=== PATIENT | female | born 1940 | race American Indian/Alaskan Native ===

== ENCOUNTER 2020-12-08 14:09 | Inpatient (IN) | payer MEDICARE ==
[~2020-12-08] VITALS: Ht 170.2 cm; Wt 108.7 kg
[~2020-12-08 14:09] MED LIST: METO25ER PO; PRAVASTATIN SOD10 MG PO; UBID100 PO; VALSARTAN-HCTZ1 EAC1 PO
[2020-12-08] MEDS ORDERED: IRBESARTAN-HCT1 EAC3 PO (14:16)
[2020-12-08] MEDS ORDERED: DONEPEZIL HCL5 M2 PO (14:17)
[2020-12-08 17:27] LABS: SARS-Cov-2 (COVID-19) PCR, MMC NEGATIVE (NEGATIVE)
--- NOTE | 2020-12-08 17:35 | NUR ---
Echocardiogram completed.
--- NOTE | 2020-12-08 18:55 | NUR ---
PT TO ICU FROM WEB ANALYST AT 1640, R RADIAL ACCESS WITH TR BANDS X2, HEMATOMA PRESENT ON ARRIVAL, MARKED WITH PEN. R HAND COOL AND DUSKY, 1ML AIR REMOVED FROM DISTAL TR BAND FOR TOTAL OF 9ML NOW IN DISTAL AND 10ML IN PROXIMAL BAND, IMPROVED COLOR, TEMP, AND CAP REFILL. GOOD SPO2 PLETH, 98%. PT ALERT, ORIENTED, FORGETFUL, NOT IMPULSIVE. HR 50'S-60 SBR, BP STABLE, PT DENIES CARDIAC COMPLAINTS. O2 98% ON RA. SKIN INTACT, PT VOIDS, DENIES ABDOMINAL DISCOMFORT. ATE DINNER WITHOUT DIFFICULTY, APPETITE GOOD. NO EDEMA NOTED, PEDAL PULSES WNL. DAUGHTER UPDATED BY PATIENT. PLAN FOR LAD INTERVENTION IN 2 DAYS IF RENAL FUNCTION STABLE PER DR. GRIER.
--- NOTE | 2020-12-08 20:29 | NUR ---
ASSUMED CARE OF PATIENT @1900. PATIENT IS ALERT AND ORIENTED X3. DID NOT KNOW YEAR AND IS FORGETFULL. ABLE TO STATE NAME, , MONTH, AND PRESIDENT. 02 SATS >95% ON RA, HOME CPAP IN ROOM. HR SR-SB 50s-60s. PATIENT DENIES CP/PRESSURE. S/P ANGIO WITH RIGHT RADIAL SITE. TR BAND X2 IN PLACE 9CC IN ONE AND 10CC IN THE OTHER. SENSATION WNL, CAP REFILL LESS THAN 3 SECONDS. HEMATOMA PRESENT ON ARRIVAL TO ROOM PER DAYSHIFT, HEMATOMA IS OUTLINED, NO CHANGES. STARTED DEFLATING BOTH TR BANDS PER ORDERS. BP STABLE. PT NEEDS CONSTANT REMINDER NOT TO USE RIGHT ARM, ARM SPLINT IN PLACE. 1 PERSON ASSIST TO BEDSIDE COMMODE. CALL LIGHT IN REACH. WILL CONTINUE TO MONITOR.
--- NOTE | 2020-12-08 23:04 | NUR ---
TR BANDS DEFLATED @2150, TR BANDS OFF @2300. TEGADERM DRESSING IN PLACE. HEMATOMA UNCHANGED FROM START OF SHIFT. SENSATION INTACT. CAP REFILL <3 SECONDS.
[2020-12-09 03:12] LABS: BASOPHILS ABSOLUTE AUTO 0.02 K/mm3 (0.00-0.23); BASOPHILS PERCENT AUTO 0 % (0-2); EOSINOPHILS ABSOLUTE AUTO 0.15 K/mm3 (0.00-0.68); EOSINOPHILS PERCENT AUTO 2 % (0-6); Hemoglobin 14.7 g/dL (11.5-16.0); IMMATURE GRAN ABSOLUTE AUTO 0.01 K/mm3 (0.00-0.10); IMMATURE GRAN PERCENT AUTO 0 % (0-1); LYMPHOCYTES ABSOLUTE AUTO 2.72 K/mm3 (0.84-5.20); LYMPHOCYTES PERCENT AUTO 33 % (21-46); MONOCYTES ABSOLUTE AUTO 0.72 K/mm3 (0.16-1.47); MONOCYTES PERCENT AUTO 9 % (4-13); Mean Corpuscular HGB 29.5 pg (26.0-34.0); Mean Corpuscular HGB Conc 34.2 g/dL (31.5-36.5); Mean Corpuscular Volume 86 fL (80-100); Mean Platelet Volume 10.8 fL (9.1-12.4); NEUTROPHILS ABSOLUTE AUTO 4.71 K/mm3 (1.96-9.15); NEUTROPHILS PERCENT AUTO 57 % (41-73); Platelet Count 180 K/mm3 (150-400); RDW Coefficient Variation 12.5 % (11.7-14.2); RDW Standard Deviation 39.6 fL (35.1-46.3); Red Blood Cell Count 4.99 M/mm3 (3.80-5.20); White Blood Cell Count 8.33 K/mm3 (4.00-11.30)
[2020-12-09 04:22] LABS: Anion Gap 5 mmol/L (6-16); Blood Urea Nitrogen 13 mg/dL (8-24); Bun/Creatinine Ratio 17.3 (12.0-20.0); CO2, Blood 27 mmol/L (21-32); Chloride, Blood 109 mmol/L (98-108); Creatinine, Blood 0.75 mg/dL (0.40-1.00); Glomerular Filtration Rate >60 (60-); Glucose, Blood 115 mg/dL (70-99); Potassium, Blood 3.8 mmol/L (3.5-5.5); Sodium, Blood 141 mmol/L (136-145)
--- NOTE | 2020-12-09 06:35 | NUR ---
SHIFT SUMMARY PATIENT IS ALERT AND ORIENTED X3, FORGETFULL AND DOES NOT KNOW THE YEAR. 02 SATS >95% ON RA. PATIENT DENIES CP/PRESSURE/SOB. SR @60s. RIGHT RADIAL SITE RECOVERED, TEGADERM IN PLACE AND SPLINT. HEMATOMA UNCHANGED THROUGH THE SHIFT. SENSATION AND CAP REFILL <3 SECONDS. TROPONIN 53.900 TALKED WITH GEOVANNY BOYER, EXPECTED INCREASE S/P ANGIO, RECHECK IN 8 HOURS. 1 PERSON ASSIST TO BEDSIDE COMMODE. BED ALARM ON. WILL CONTINUE TO MONITOR UNTIL REPORT GIVEN TO DAYSHIFT RN.
--- NOTE | 2020-12-09 13:13 | NUR ---
TRANSFER TO PCU REPORT CALLED VIA PHONE. ALL QUESTIONS ANSWERED. ALL PT MEDS AND BELONGINGS TAKEN TO ROOM 230 WITH PT.
--- NOTE | 2020-12-09 17:39 | NUR ---
SHIFT SUMMARY PT TO ROOM AT APPROX 1330, ORIENTED TO ROOM AND CALL LIGHT. PT EDUCATED ON FALL RISK AND TO CALL FOR ASSISTANCE PRIOR TO GETTING UP. PT A&Ox4; CALM AND COOPERATIVE WITH CARE. PT RESTING IN BED DURING SHIFT. UP WITH SBA TO BATHROOM. UP TO CHAIR FOR MEALS. PT DENIES PAIN, CHEST PAIN, SOB, NAUSEA AND DIZZINESS. PT EDCUATED ON PLANS FOR NPO AT MIDNIGHT AND ANGIO TOMORROW. RIGHT RADIAL SITE HAS LARGE, DIFFUSE BRUISING FROM PALM OF RIGHT HAND TO FOREARM, NO TENDERNESS NOTED, SWELLING NOTED TO WRIST, BUT SOFT. VSS. NO OTHER ACUTE CHANGES NOTED. WILL CONTINUE TO MONITOR UNTIL REPORT GIVEN TO ONCOMING RN.
--- NOTE | 2020-12-10 05:48 | NUR ---
SHIFT SUMMARY ASSUMED CARE OF PT AT 1900. PT IS A/OX4. HEART SOUNDS REGULAR, TELE SHOWS SINUS. LUNG SOUNDS ARE DIMINISHED. PT WAS CONTIENT TO BATHROOM. PT WAS A SBA. PT HAS A LARGE BRUISE THAT COVERS HER WHOLE R FORARM FROM ANGIO SITE. SITE HAS SMALL HARD SPOT ON IT BUT OTHERWISE FREE OF PAIN OR BLEEDING. PT HAS BEEN NPO SINCE MIDNIGHT. FLUIDS STARTED EARLY THIS AM. CALL LIGHT IN REACH, BED IN LOWEST POSTION.
[2020-12-10 06:03] LABS: BASOPHILS ABSOLUTE AUTO 0.02 K/mm3 (0.00-0.23); BASOPHILS PERCENT AUTO 0 % (0-2); EOSINOPHILS ABSOLUTE AUTO 0.18 K/mm3 (0.00-0.68); EOSINOPHILS PERCENT AUTO 2 % (0-6); Hematocrit 45.8 % (33.0-51.0); Hemoglobin 15.8 g/dL (11.5-16.0); IMMATURE GRAN ABSOLUTE AUTO 0.02 K/mm3 (0.00-0.10); IMMATURE GRAN PERCENT AUTO 0 % (0-1); LYMPHOCYTES ABSOLUTE AUTO 3.07 K/mm3 (0.84-5.20); LYMPHOCYTES PERCENT AUTO 39 % (21-46); MONOCYTES ABSOLUTE AUTO 0.71 K/mm3 (0.16-1.47); MONOCYTES PERCENT AUTO 9 % (4-13); Mean Corpuscular HGB 29.9 pg (26.0-34.0); Mean Corpuscular HGB Conc 34.5 g/dL (31.5-36.5); Mean Corpuscular Volume 87 fL (80-100); Mean Platelet Volume 10.8 fL (9.1-12.4); NEUTROPHILS PERCENT AUTO 49 % (41-73); Platelet Count 164 K/mm3 (150-400); RDW Coefficient Variation 12.6 % (11.7-14.2); RDW Standard Deviation 39.8 fL (35.1-46.3); Red Blood Cell Count 5.28 M/mm3 (3.80-5.20)
[2020-12-10 06:27] LABS: Anion Gap 7 mmol/L (6-16); Blood Urea Nitrogen 12 mg/dL (8-24); Bun/Creatinine Ratio 16.2 (12.0-20.0); CO2, Blood 27 mmol/L (21-32); Calcium, Blood 8.8 mg/dL (8.5-10.1); Chloride, Blood 105 mmol/L (98-108); Creatinine, Blood 0.74 mg/dL (0.40-1.00); Glomerular Filtration Rate >60 (60-); Glucose, Blood 105 mg/dL (70-99); Potassium, Blood 3.5 mmol/L (3.5-5.5); Sodium, Blood 139 mmol/L (136-145)
--- NOTE | 2020-12-10 08:30 | NUR ---
0830 OUT TO ANGIO
--- NOTE | 2020-12-10 12:51 | NUR ---
1200 Pt stated she needed to pee; rolled onto bedpan, but after 20 minutes she was unable to void. Bladder scan showed 218 cc in bladder. 1230 Pt put in reverse trendelenburg position to eat lunch. After a few bites she suddenly felt like she was going to vomit. Vomited once, the food which she had just eaten. Denies ShOB, denies chest pain, no diaphoresis noted, and vital signs stable. Immediately afterwards, she said her nausea was gone. Medicated with zofran. right groin site remains with FEMstop on, at 59 mmHg. Blood resspure 139/75, spo2 92% on 2nd toe of right foot., distal to right femoral access site. Distal pulses palapable, and toes are pink, cap refill brisk.
--- NOTE | 2020-12-10 13:07 | NUR ---
1055 RETURNED FROM PSYCHOLOGIST ENGINEERING. GROIN SITE CDI WITH FEMCATH. PRESENTLY AT 116 PRESSURE. PT ALERT, ORIENTED X3 TALKING. DENIES PAIN. ON R.A. VSS. NO BLEEDING NOTED, PEDAL PULSES NOTED. CAP REFILL <3 SEC, PT LYING FLAT AND INSTRUCTED TO REMAIN SO. 1115 PT CONTINUES TO BE LYING FLAT. NO BLEEDING NOTED AT FEMORAL SITE. PEDAL PULSES NOTED. A/O X3 DENIES PAIN. VSS STABLE. 1145 PT CONTINUES TO BE LYING FLAT. NO BLEEDING NOTED AT FEMORAL SITE. PEDAL PULSES NOTED. A/O X3 DENIES PAIN. VSS STABLE. 1205 PT CONTINUES TO BE LYING FLAT. NO BLEEDING NOTED AT FEMORAL SITE. PEDAL PULSES NOTED, A/O X3 DENIES PAIN. VSS STABLE.
--- NOTE | 2020-12-10 13:26 | NUR ---
1055 FEMCATH PRESSURE, 116. 1130 FEMCATH PRESSURE, 73 1200 FEMCATH PRESSURE, 58 1300 FEMCATH PRESSURE, 40
--- NOTE | 2020-12-10 13:58 | NUR ---
VSS STABLE. PEDAL PULSES OBTAINED. CAP REFILL <3, NO BLEEDING NOTED. REPORTS SENSATION IN FEET. DENIES PAIN IN ABD. FEELS NEEDS TO URINATE. WILL PLACE ON BEDPAN WHEN AIDE AVAIL. TO ASST. BED CONTINUES TO BE FLAT. PT STATES FEMCATH IS PAINFUL. NOW AT 40 PRESSURE.
--- NOTE | 2020-12-10 18:36 | NUR ---
PT QUITE PLEASANT TODAY. CAME BACK FROM PROCEDURE ABOUT [address] UNTIL ABOUT 4PM. LIGHT BLEEDING NOTED AT SITE. NO HEMATOMA NOTED. NO BRUISING NOTED. PT EATING DINNER THIS LETICIA. IS FORGETFUL, DEMENTIA. HOWEVER REMAINS QUITE PLEASANT. SHE SITTING UP MORE . BED IN LOW POSITION, CALL LITE IN REACH, BED ALARM ON FOR SAFETY
--- NOTE | 2020-12-11 05:35 | NUR ---
SHIFT SUMMARY ASSUMED CARE OF PT AT 1900. PT IS A/OX4. HEART SOUNDS REGULAR, LUNG SOUNDS DIMINISHED. PT WAS A 1P ASSIT TO BATHRROM. PT WAS CONTIENT T/O THE NIGHT. PT R FOREARM HAS A BRUISE FROM WRIST TO ELBOW. SITE IS SOFT AND NONTENDER. PT R FEMORAL SITE IS SLIGHTLY HARD AT SITE WITH A SMALL AMOUNT OF BLOOD BUT OTHERWISE WITH MINIMAL SWELLING. CALL LIGHT IN REACH, BED IN LOWEST POSTION.
[2020-12-11 06:44] LABS: BASOPHILS ABSOLUTE AUTO 0.01 K/mm3 (0.00-0.23); BASOPHILS PERCENT AUTO 0 % (0-2); EOSINOPHILS ABSOLUTE AUTO 0.11 K/mm3 (0.00-0.68); EOSINOPHILS PERCENT AUTO 1 % (0-6); Hematocrit 42.3 % (33.0-51.0); Hemoglobin 14.4 g/dL (11.5-16.0); IMMATURE GRAN ABSOLUTE AUTO 0.02 K/mm3 (0.00-0.10); IMMATURE GRAN PERCENT AUTO 0 % (0-1); LYMPHOCYTES ABSOLUTE AUTO 2.64 K/mm3 (0.84-5.20); LYMPHOCYTES PERCENT AUTO 32 % (21-46); MONOCYTES ABSOLUTE AUTO 0.81 K/mm3 (0.16-1.47); MONOCYTES PERCENT AUTO 10 % (4-13); Mean Corpuscular HGB 29.6 pg (26.0-34.0); Mean Corpuscular Volume 87 fL (80-100); NEUTROPHILS ABSOLUTE AUTO 4.64 K/mm3 (1.96-9.15); NEUTROPHILS PERCENT AUTO 57 % (41-73); Platelet Count 171 K/mm3 (150-400); RDW Coefficient Variation 12.6 % (11.7-14.2); RDW Standard Deviation 39.8 fL (35.1-46.3); Red Blood Cell Count 4.87 M/mm3 (3.80-5.20); White Blood Cell Count 8.23 K/mm3 (4.00-11.30)
[2020-12-11 07:12] LABS: Anion Gap 6 mmol/L (6-16); Blood Urea Nitrogen 13 mg/dL (8-24); Bun/Creatinine Ratio 16.6 (12.0-20.0); CO2, Blood 27 mmol/L (21-32); Calcium, Blood 8.4 mg/dL (8.5-10.1); Chloride, Blood 106 mmol/L (98-108); Creatinine, Blood 0.78 mg/dL (0.40-1.00); Glomerular Filtration Rate >60 (60-); Glucose, Blood 107 mg/dL (70-99); Potassium, Blood 3.7 mmol/L (3.5-5.5); Sodium, Blood 139 mmol/L (136-145)
[2020-12-11] MEDS ORDERED: PRAV20 PO (11:09)
[2020-12-11] MEDS ORDERED: ASPIR 8181 M1 PO (11:10)
[2020-12-11] MEDS ORDERED: CLOP75 PO (11:11)
--- NOTE | 2020-12-11 13:42 | NUR ---
PT WAS DISCHARGED TODAY AT ~1 PM. PT SAID SHE CALLED DAUGHTER TO PICK HER UP AND PT DID NOT CALL DAUGHTER. PT MED LIST/INSTRUCTION WERE REVIEWED TODAY. pT RECIEVED FULL POS T-OP INSTRUCTIONS. PT'S LEFT AC iV WAS REMOVED. POST-OP SITES WERE ASSESSED AND NO OOZING OF BLOOD PRESENT. PT WAS BROUGHT DOWN IN LOBBY BY STAFF.
== END 2020-12-11 12:59 | disposition home or self-care (01) | DRG 247 ==
LOC: ER 14:09 → ICUW 14:30 → ICUE 17:05 → SURS 12-09 13:16
PROVIDERS: ADMIT Internal Medicine Cardiovascular Disease
PROC: 027034Z Dilation of Coronary Artery, One Artery with Drug-eluting Intraluminal Device, Percutaneous Approach (ICD-10-PCS; principal; 2020-12-08)
PROC: B2111ZZ Fluoroscopy of Multiple Coronary Arteries using Low Osmolar Contrast (ICD-10-PCS; 2020-12-08)
PROC: 027034Z Dilation of Coronary Artery, One Artery with Drug-eluting Intraluminal Device, Percutaneous Approach (ICD-10-PCS; 2020-12-09)
DX: I21.29 ST elevation (STEMI) myocardial infarction involving other sites (principal); Z20.822 Contact with and (suspected) exposure to COVID-19; Z79.899 Other long term (current) drug therapy; Z88.8 Allergy status to other drugs, medicaments and biological substances
CPT/HCPCS: 36415; 76937; 80048; 83036; 84484; 85025; 85347; 93306; 93454; 94660; 94762; 99152; 99153; 99285-25; A9270; C1725; C1760; C1769; C1874; C1887; C1894; C9600; J1644; J2250; J2405; J3010; J7030; J7050; Q9967; U0004

== ENCOUNTER → 2021-06-23 | Outpatient (CLI) | payer MEDICARE ==
[~2021-06-23] MED LIST changes: +ASPIR 8181 M1 PO; +CLOP75 PO; +DONEPEZIL HCL5 M2 PO; +IRBESARTAN-HCT1 EAC3 PO; +PRAV20 PO
== END | disposition home or self-care (01) ==
LOC: LAB SHORT 09:44
DX: N39.0 Urinary tract infection, site not specified (principal)
CPT/HCPCS: 87077; 87086; 87147; 87186

== ENCOUNTER → 2021-09-15 | Outpatient (CLI) | payer MEDICARE | END | disposition home or self-care (01) | LOC: LAB 16:00 → LAB SHORT 16:00 | DX: R35.0 Frequency of micturition (principal) | CPT/HCPCS: 87086 ==

== ENCOUNTER → 2021-11-03 | Outpatient (CLI) | payer MEDICARE | END | disposition home or self-care (01) | LOC: LAB 15:54 → LAB SHORT 15:54 | DX: R39.15 Urgency of urination (principal) | CPT/HCPCS: 87086 ==

== ENCOUNTER → 2022-02-03 | Outpatient (CLI) | payer MEDICARE | END | disposition home or self-care (01) | LOC: LAB SHORT 10:30 → LAB 10:30 | DX: R82.90 Unspecified abnormal findings in urine (principal); R46.89 Other symptoms and signs involving appearance and behavior | CPT/HCPCS: 87077; 87086; 87186 ==

== ENCOUNTER → 2022-12-23 | Outpatient (CLI) | payer OTHER | LOC: LAB 09:00 → LAB SHORT 09:00 | DX: N39.0 Urinary tract infection, site not specified (principal) | CPT/HCPCS: 87077; 87086; 87186 ==

== ENCOUNTER → 2023-04-06 | Outpatient (CLI) | payer OTHER | LOC: LAB SHORT 15:36 → LAB 15:36 | DX: R30.0 Dysuria (principal) | CPT/HCPCS: 87086 ==

== ENCOUNTER → 2023-12-15 | Outpatient (CLI) | payer OTHER ==
[~2023-12-15] MED LIST changes: +CEPH500 PO
== END | disposition home or self-care (01) ==
LOC: LAB SHORT 19:22 → LAB 19:22
DX: R30.0 Dysuria (principal); R39.9 Unspecified symptoms and signs involving the genitourinary system
CPT/HCPCS: 87077; 87086; 87186

== ENCOUNTER → 2024-10-06 | Outpatient (CLI) | payer OTHER | LOC: LAB 12:24 → LAB SHORT 12:24 | DX: N39.0 Urinary tract infection, site not specified (principal); R31.9 Hematuria, unspecified | CPT/HCPCS: 87077; 87086; 87186 ==

== ENCOUNTER → 2024-11-01 | Outpatient (CLI) | payer OTHER | LOC: LAB 11:16 → LAB SHORT 11:16 | DX: N39.0 Urinary tract infection, site not specified (principal) | CPT/HCPCS: 87077; 87086; 87186 ==

== ENCOUNTER → 2024-12-03 | Outpatient (CLI) | payer OTHER | END | disposition home or self-care (01) | LOC: LAB 10:39 → LAB SHORT 10:39 | DX: N39.0 Urinary tract infection, site not specified (principal) | CPT/HCPCS: 87077; 87086; 87186 ==